=== PATIENT | male | born 1935 | race Two or more races ===

== ENCOUNTER 2017-03-23 14:11 | Inpatient (IN) | payer MEDICARE, BC ==
[2017-03-23 14:53] LABS: ABS Basophils 0 10^3/ul (0-0.2); ABS Eosinophils 0 10^3/ul (0-0.6); ABS Lymphocytes 0.6 10^3/ul (1.0-4.8); ABS Monocytes 0.8 10^3/ul (0-0.8); ABS Neutrophils 9.6 10^3/ul (1.5-7.7); ABS Nucleated RBC 0 10^3/ul; Eosinophil % 0.2 % (0-6); Hematocrit 39 % (42-52); Hemoglobin 13.2 g/dl (14.0-18.0); Lymphocyte % 5.3 % (25-47); Mean Corpuscular HGB Conc 34 g/dl (31-36); Mean Corpuscular Hemoglobin 28 pg (27-31); Mean Corpuscular Volume 81 fL (80-94); Mean Platelet Volume 10 um3 (7.4-10.4); Nucleated Red Blood Cells % 0; Platelet Count 153 10^3/ul (150-450); Red Blood Count 4.79 10^6/ul (4.0-5.4); Red Cell Distribution Width 14 % (10.5-15)
[2017-03-23 15:08] LABS: EGFR Non-African American 72.9 (>60)
--- NOTE | 2017-03-23 15:56 | RAD ---
HISTORY: The sella weakness, slurred speech COMPARISONS: None TECHNIQUE: Multiple contiguous axial CT scans were obtained of the head without intravenous contrast. FINDINGS: HEMORRHAGE/INFARCT: There is no hemorrhage or acute infarct. MASSES/SHIFT: There is no mass. There is 0.1 cm of subfalcine shift to the left. EXTRA-AXIAL SPACES: There is a low-attenuation fluid collection along the right frontal and parietal convexities consistent with chronic subdural hematoma. There is high attenuation material noted within this collection consistent with acute on chronic hemorrhage. SULCI AND VENTRICLES: There is diffuse and proportional enlargement of the sulci and ventricles. CEREBRUM: There is hypoattenuation of the periventricular and subcortical white matter. BRAINSTEM: There are no focal parenchymal abnormalities. CEREBELLUM: There are no focal parenchymal abnormalities. VESSELS: The vessels are grossly normal. PARANASAL SINUSES: The paranasal sinuses are clear. ORBITS: The orbits are unremarkable. BONES AND SOFT TISSUE: No bone or soft tissue abnormalities are noted. OTHER: None IMPRESSION: ACUTE ON CHRONIC RIGHT FRONTOPARIETAL SUBDURAL HEMATOMA. 0.1 CM OF SUBFALCINE SHIFT TO THE LEFT. CHRONIC SMALL VESSEL ISCHEMIC CHANGES. PRELIMINARY FINDINGS WERE DISCUSSED WITH DR. QUICK AT APPROXIMATELY 3:50 PM ON MARCH 23, 2017.
--- NOTE | 2017-03-23 16:12 | RAD ---
HISTORY: Fall, abrasion COMPARISONS: None VIEWS: 4, frontal views of both knees with lateral views of the left knee and of the right knee FINDINGS: Right: BONE DENSITY: There is diffuse osteopenia. BONES: There is no displaced fracture. There is superior patellar enthesophyte. JOINTS: There is no arthropathy. There is no suprapatellar joint effusion or lipohemarthrosis. ALIGNMENT: There is no dislocation. The alignment is anatomic. SOFT TISSUES: Unremarkable. Left: BONE DENSITY: There is diffuse osteopenia. BONES: There is no displaced fracture. JOINTS: There is no arthropathy. There is no suprapatellar joint effusion or lipohemarthrosis. ALIGNMENT: There is no dislocation. The alignment is anatomic. SOFT TISSUES: Unremarkable. OTHER FINDINGS: None. IMPRESSION: 1. OSTEOPENIA. 2. NO ACUTE OSSEOUS INJURY. THE DEGREE OF OSTEOPENIA MAY MAKE A NONDISPLACED FRACTURE RADIOGRAPHICALLY OCCULT. IF SYMPTOMS PERSIST, RECOMMEND REPEAT IMAGING.
[2017-03-23 16:24] LABS: Urine Appearance Clear; Urine Blood 3+ (Negative); Urine Color Yellow; Urine Ketones Trace (Negative); Urine Protein Negative (Negative); Urine Specific Gravity 1.013 (1.010-1.030); Urine Urobilinogen Negative (Negative)
--- NOTE | 2017-03-23 16:56 | RAD ---
HISTORY: Fall, subdural hematoma COMPARISONS: None TECHNIQUE: Multiple contiguous axial CT scans were obtained of the cervical spine without intravenous contrast, with coronal and sagittal multiplanar reformations. FINDINGS: BRAIN: The visualized brain is unremarkable CENTRAL CANAL: Evaluation of the central canal is limited on CT technique; however, there is no obvious canalicular mass or epidural hemorrhage. ALIGNMENT: There is straightening of the cervical lordosis. VERTEBRAL BODIES: There is diffuse osteopenia. Incidentally noted is a straight a defect of the posterior arch of C1. There is no displaced fracture. There is multilevel anterolateral marginal osteophyte formation. JOINTS: There is diffuse uncovertebral and facet hypertrophy. There is osteoarthritis of the atlantoaxial articulation. MUSCULATURE: Unremarkable INTERVERTEBRAL DISCS: There is diffuse loss of intervertebral disc height. AXIAL IMAGES: On axial images, there is moderate right neural foraminal narrowing at C5-C6. There is no osseous central canal stenosis. SOFT TISSUES: The visualized soft tissues of the neck are unremarkable. The prevertebral fat stripe is preserved. OTHER: None. IMPRESSION: 1. OSTEOPENIA. 2. DEGENERATIVE DISEASE AND OSTEOARTHRITIS. 3. NO ACUTE OSSEOUS INJURY TO THE CERVICAL SPINE
[2017-03-23] MEDS ORDERED: levETIRAcetam IV* 1,000 MG in NS 0.9% 100 ML* 100 ML IVPB ONE (17:53)
[2017-03-23] MEDS ORDERED: LORazepam TAB(*) 0.5 MG PO PRN (19:43)
[2017-03-23] MEDS ORDERED: Acetaminophen TAB* 325 MG PO PRN (19:43)
[2017-03-23] MEDS: amLODIPine TAB* 5 MG PO ONE ×2 (21:37→21:45)
[2017-03-23] MEDS: hydrALAZINE IV* 20 MG/ML VIAL IV SLOW PU PRN (21:45)
--- NOTE | 2017-03-23 23:14 | HP ---
HISTORY AND PHYSICAL: DATE OF ADMISSION: 03/23/17 ADMITTING PROVIDER: Robi Buckner MD PRIMARY CARE PROVIDER: Dr. Ferrari. CHIEF COMPLAINT: Fall, lower extremity weakness; inability to stand. HISTORY OF PRESENT ILLNESS: Gabriel Monroy is an 82-year-old male with a past medical history of hypertension; prostate cancer, status post radical prostatectomy, 1999, with local recurrence; anxiety; also dementia, who was in his usual state of health when he collapsed at 2 a.m. day of admission, caught in the arms of his , who assisted him slowly to the ground and he remained there for the next 3 hours. He is a Nepali-only speaker. History is provided by son, Daniel, with assistance of at bedside. Since that time, he has been reportedly unable to ambulate and was brought to the [facility] Emergency Room. They say he denied any fevers, chills, nausea, vomiting, diarrhea, constipation, headache, chest pain, shortness of breath. He does have a history of occasional falls and uses a cane at baseline. He lives with his . At [facility] ED, he had most notably a CT head noncontrast, which demonstrated acute on chronic subdural hematoma with 1-mm subfalcine shift to the left. Dr. Silva of Neurosurgery was consulted, who recommended admission to the ICU, medical clearance for surgery for likely craniometry (vs zenobia hole) with drain placement followed by several days in the ICU with recommendation for 1- hour neuro checks. Vitals signs initially stable to hypertensive; blood pressure 155 /76, then 181/77. The patient was loaded with IV Keppra [address] Silva. The patient's familyr reports no significant cardiac history including no history of myocardial infarction. MEDICATIONS: Include: 1. Ativan prescribed at 2 mg t.i.d. but thought that too much and he is actually getting it at 1 mg twice a day. 2. Atenolol 25 mg daily. 3. Ibuprofen 200 mg p.o. q.6 hours p.r.n. ALLERGIES: No known drug allergies. FAMILY HISTORY: Sister with CVA at age 75. Son cannot relate the patient's father's and mother's cause of . SOCIAL HISTORY: The patient is a former smoker of 40-pack years, quit 20 years ago. Had significant alcohol use in his younger days but not currently, no other drug use. He lives with his . Medical surrogate is son, Daniel Monroy, who desires the patient to be full code. REVIEW OF SYSTEMS: As per HPI, limited due to language differences. No dysuria or increased frequency. PHYSICAL EXAMINATION GENERAL APPEARANCE: No acute distress, slight bruise on left anterior scalp. VITAL SIGNS: Blood pressure currently 156/85, respiratory rate 11 to 20, satting 94% to 98% on room air, heart rate 64 to 75, temperature 98 degrees. HEENT: Normocephalic, slight bruise on anterior left forehead. Pupils equal, round, and reactive to light. Extraocular motions intact. No scleral icterus. NECK: Supple. No cervical or supraclavicular lymphadenopathy. RESPIRATORY: Clear to auscultation bilaterally with no wheezing, rales, or rhonchi. CARDIOVASCULAR: Regular rate and rhythm, no murmurs, rubs, or gallops. ABDOMEN: Soft, nontender, nondistended. EXTREMITIES: Warm, well perfused. NEUROLOGIC: Cranial nerves II through XII intact, though perhaps slight left facial droop. Leg strength at least 4/5 bilaterally, most prominent weakness maybe in his left biceps which is 4-, although unclear if it is just not of him understanding the commands through interpretation. Left finger abduction also reduced compared to right. SKIN: No rashes, slight abrasions on bilateral knees present. DIAGNOSTIC STUDIES/LAB DATA: White count 11.0, hemoglobin 13.2, hematocrit 39 , platelets 153, neutrophils 87.0. INR 1.00. Sodium 136, potassium 3.8, chloride 102, carbon dioxide 25, BUN 19, creatinine 0.98, glucose 134, lactic acid 1.6, albumin 4.3, calcium 10.1. Total bili 0.8, AST 25, ALT 16, alk phos 52. Troponin 0.01. Triglycerides 74, LDL 78, HDL 57.4. Urinalysis: +3 blood , trace ketones. Imaging: Additionally, had a knee x-ray which showed diffuse osteopenia. No acute osseous injury, though the degree of osteopenia make nondisplaced fracture radiologically occult. CT of the cervical spine showed degenerative disk disease, osteoarthritis, and osteopenia. CT brain without contrast demonstrated acute on chronic right frontoparietal subdural hematoma 0.1 cm of subfalcine shift to the left, chronic small vessel ischemic changes. EKG demonstrated prolonged NE interval 231. Some abnormal R-wave progression. No ST elevations or depressions or T-wave inversions. ASSESSMENT AND PLAN: Gabriel Monroy is an 82-year-old gentleman with locally recurrent prostate cancer, a former smoker to 40-pack years, hypertension, presents with acute on chronic subdural hematoma, who is medically cleared for surgery with Dr. Silva tomorrow. I added on a lipid panel, which showed no hyperlipidemia, A1c is also being added. Per Dr. Silva' request his goal blood pressures overnight are 140 to 160 systolically. We will get q.1 hour neuro checks. He can eat a heart-healthy diet until midnight after which he is n.p.o. We will repeat the CT head noncontrast in the a.m. to compare with any changes and get another CBC in the morning as well. We will continue his atenolol 25 mg daily and give him 0.5 mg Ativan q.8 hours p.r.n. given his frequent Ativan use. No further cardiologic testing such as echocardio-gram is indicated at this time. He is a full code being admitted to the inpatient status in the ICU per Dr. Silva' frequent neuro check. [id number]/[facility] #: [id number] MATTIE
[2017-03-23] MEDS ORDERED: niCARdipine 0.1MG/ML IVPREMIX* 20 MG/200 ML BAG IV SCH (23:45)
--- NOTE | 2017-03-23 23:47 | CONS ---
CONSULTATION REPORT: DATE OF CONSULT: 03/23/17 HISTORY OF PRESENT ILLNESS: The patient is a very pleasant 82-year-old male with a history of prostate cancer and dementia, who was brought to the emergency room after a reported possible syncopal episode. The patient's reports that the patient was trying to go to the bathroom yesterday and he experienced a fall. Unknown loss of consciousness. The patient was found to have weakness in the left upper and left lower extremity this morning and had difficulty ambulating and he was brought to the emergency room by ambulance. The patient and family denies any history of nausea or vomiting, any seizures, any problem with vision or speech. The patient has baseline dementia. They did report that the patient had left-sided weakness and inability to ambulate. No episodes of urinary or GI incontinence at his baseline, but the patient may have slight incontinence it the emergency room. The patient lives with his . History was obtained from the patient's chart, the patient and his family including his and his son. The patient was seen in the emergency room. PAST MEDICAL HISTORY: The patent has a history of prostate cancer, dementia, hypertension. PAST SURGICAL HISTORY: Prostate surgery, hernia repair. MEDICATIONS: The patient is reported to be on atenolol and lorazepam. ALLERGIES: No known drug allergies. FAMILY HISTORY: Noncontributory. SOCIAL HISTORY: Tobacco: Negative. Alcohol: Negative. Recreational drug use : Negative. PHYSICAL EXAMINATION: The patient is not in acute distress. He is resting comfortably. He is awake and alert. He is oriented x2. His pupils are equal and reactive. Cranial nerves II through XII are grossly intact. Motor 5/5 on the right side, 4/5 on the left side. The patient has pronator drift on the left. Sensory was grossly intact to light touch. Deep tendon reflexes +1 bilaterally. No clonus. No Babinski. Calderón's negative. Straight leg raise negative in the sitting position. The patient has no tenderness to right cervical, thoracic or lumbar spine. He has free range of motion of the cervical spine. STUDIES: The patient has a CT scan of the brain revealing a right chronic with acute component of subdural hematoma with mass effect upon the cerebral hemisphere with approximately 1.5 mm midline shift. ASSESSMENT: The patient is a very pleasant 82-year-old gentleman with history of prostate cancer and dementia, who was reported to have sustained a fall after a syncopal episode earlier this morning and presented with left hemiparesis and CT scan of the brain revealed a right mixed density subdural hematoma. PLAN: The patient at this point has signs of left hemiparesis consistent with compressed phenomena from his right subdural hematoma. We discussed in extent the patient's condition as well as imaging findings with the patient's son and . I think at this point, evacuation of a subdural hematoma may be beneficial for the patient in the form of craniotomy or zenobia holes due to the acute compressive component of his subdural. We discussed expectation and limitations, possible complications of the procedure. The complications include but not limited to bleeding, infection, risk of injury to adjacent structures structures, come, paralysis, , need for additional procedure, anesthesia risks, stroke, blindness, cancer, need for additional procedures, spinal fluid leak. The patient's family understood and would like to proceed with surgical intervention with understanding that the patient may require further subsequent interventions and that if his condition may not improve, in fact may get worse after the surgery and that he may require a prolonged hospitalization with prolonged ICU stay, need for tracheostomy, gastrostomy, difficulty to wean from the ventilator. The patient is currently evaluated by Internal Medicine. Appreciate IM management and we would kindly request to obtain Medicine clearance. We recommend to give him 7 days of seizures prophylaxis, maintain his systolic blood pressure within normal limits and monitor his vital signs and neuro checks q.1 hour. We will obtain a CT scan of the brain in the morning , keep him n.p.o. after midnight and we will plan for a craniotomy/ zenobia holes and evacuation of the subdural hematoma. Thank you for allowing us to participate in the care of this patient. Please do not hesitate to contact our office in case you have any further questions or concerns regarding the care of this patient. [id number]/[facility] #: [id number] MATTIE
[2017-03-24] MEDS: hydrALAZINE IV* 20 MG/ML VIAL IV SLOW PU PRN (00:06)
[2017-03-24 05:26] LABS: ABS Basophils 0.1 10^3/ul (0-0.2); ABS Eosinophils 0.1 10^3/ul (0-0.6); ABS Monocytes 0.8 10^3/ul (0-0.8); ABS Neutrophils 8.5 10^3/ul (1.5-7.7); ABS Nucleated RBC 0 10^3/ul; Eosinophil % 0.5 % (0-6); Hematocrit 41 % (42-52); Hemoglobin 13.9 g/dl (14.0-18.0); Lymphocyte % 9.4 % (25-47); Mean Corpuscular HGB Conc 34 g/dl (31-36); Mean Corpuscular Hemoglobin 28 pg (27-31); Mean Corpuscular Volume 81 fL (80-94); Mean Platelet Volume 10 um3 (7.4-10.4); Nucleated Red Blood Cells % 0; Platelet Count 136 10^3/ul (150-450); Red Blood Count 5.05 10^6/ul (4.0-5.4); Red Cell Distribution Width 14 % (10.5-15); White Blood Count 10.4 10^3/ul (3.5-10.8)
[2017-03-24] MEDS ORDERED: Famotidine IV* 10 MG/ML 2 ML (20 mg) IV ONE (06:00)
--- NOTE | 2017-03-24 07:49 | RAD ---
INDICATION: Subdural hematoma COMPARISON: March 23, 2017 TECHNIQUE: Noncontrast axial source images were acquired from the skull base to the vertex. FINDINGS: Ventricles/sulci: There is advanced cortical atrophy with compensatory dilatation of the CSF spaces. Brain parenchyma: There is advanced periventricular and subcortical white matter change compatible with chronic ischemia. Intracranial hemorrhage:None. Extra-axial spaces: There is a right frontoparietal convexity subdural hematoma measuring approximately 12 mm in thickness, unchanged. There is evidence of both acute and chronic hemorrhage. The appearance is unchanged. There is localized mass effect with sulcal effacement. Calvarium: There is no calvarial fracture or other calvarial abnormality. Scalp: There is no evidence of scalp or extracalvarial soft tissue abnormality. Paranasal sinuses/mastoid: The paranasal sinuses and mastoid air cells are clear. Other: None. IMPRESSION: NO CHANGE IN THE RIGHT-SIDED SUBDURAL HEMATOMA WHICH CONTAINS BOTH ACUTE AND CHRONIC HEMORRHAGE. THERE IS LOCALIZED MASS EFFECT. ADVANCED CORTICAL ATROPHY WITH CHRONIC MICROVASCULAR ISCHEMIC CHANGE.
[2017-03-24] MEDS: levETIRAcetam TAB* 500 MG PO SCH ×2 (08:51→10:46)
[2017-03-24] MEDS: Atenolol TAB* 25 MG PO SCH (08:51)
[2017-03-24] MEDS: LORazepam INJ* 2 MG/ML 1 ML VIAL IV PUSH PRN ×2 (10:32→17:15)
[2017-03-24] MEDS: levETIRAcetam IV* 1,000 MG in NS 0.9% 100 ML* 100 ML IVPB SCH ×2 (10:32→22:51)
[2017-03-24] MEDS ORDERED: Lidocaine 1% MPF wEPI 200,000* 30 ML SDV ONE (13:22)
[2017-03-24] MEDS ORDERED: Mannitol 25% (12.5 GM) 50 ML* 12.5 GM/50 ML VIAL ONE (13:23)
[2017-03-24] MEDS ORDERED: Thrombin 5,000 UNITS* 1 APPLIC KIT - topical use - TOPICAL ONE (13:23)
[2017-03-24] MEDS ORDERED: Bacitracin IV* 50,000 UNITS INJ ONE (13:23)
[2017-03-24] MEDS ORDERED: ceFAZolin 1 GM in Dextrose (*) 2 GM/100 ML BAG IVPB ONE (13:50)
[2017-03-24] MEDS ORDERED: fentaNYL* 50 MCG/ML 2 ML VIAL (100 MCG VIAL) ONE (14:11)
[2017-03-24] MEDS ORDERED: Lidocaine 2% PF * 5 ML VIAL ONE (14:11)
[2017-03-24] MEDS ORDERED: EPHEDrine (Pressors)* 50 MG/ML VIAL ONE (15:16)
[2017-03-24] MEDS ORDERED: Propofol* 10 MG/ML 20 ML BTL IV PUSH ONE (15:31)
[2017-03-24] MEDS ORDERED: Naloxone* 0.4 MG/ML 1 ML VIAL IV PRN (15:53)
[2017-03-24] MEDS ORDERED: oxyCODONE/Acetamin 5/325 MG* TAB PO PRN (15:53)
--- NOTE | 2017-03-24 16:45 | PN ---
Subjective Date of Service: 03/24/17 Interval History: placed on nicardipine gtt overnight as was not considered safe for po pills and hypertensive above goals to surgery in afternoon planned. s/p zenobia hole with drain. agitated in AM. Objective Active Medications: Acetaminophen (Tylenol Tab*) 650 mg PO Q6H PRN PRN Reason: FEVER/PAIN Atenolol (Tenormin Tab*) 25 mg PO DAILY [facility] Last Admin: 03/24/17 08:51 Dose: 25 mg Hydralazine HCl (Apresoline Iv*) 10 mg IV SLOW PU Q2H PRN PRN Reason: SYSTOLIC BP GREATER THAN 180 Last Admin: 03/24/17 00:06 Dose: 10 mg Lactated Ringer's (Lactated Ringers 1000 Ml Bag*) 1,000 mls @ 100 mls/hr IV PER RATE [facility] Last Admin: 03/24/17 10:15 Dose: 100 mls/hr Levetiracetam 1,000 mg/ Sodium (Chloride) 110 mls @ 440 mls/hr IVPB Q12H [facility] Last Admin: 03/24/17 10:32 Dose: 440 mls/hr Lorazepam (Ativan Tab(*)) 0.5 mg PO Q8H PRN PRN Reason: ANXIETY Lorazepam (Ativan Inj*) 0.5 mg IV PUSH Q6H PRN PRN Reason: ANXIETY Last Admin: 03/24/17 10:32 Dose: 0.5 mg Naloxone HCl (Narcan*) 0.08 mg IV Q2M PRN PRN Reason: severe induced resp depression Stop: 03/25/17 15:52 Oxycodone/Acetaminophen (Percocet 5/325 Tab*) 1 tab PO ONCE PRN PRN Reason: PAIN - MODERATE Stop: 03/24/17 18:00 Vital Signs - 8 hr 03/24/17 03/24/17 03/24/17 09:00 09:30 09:46 Pulse Rate 86 84 82 Respiratory 18 18 16 Rate Blood Pressure 157/93 158/96 122/116 (mmHg) O2 Sat by Pulse 96 96 97 Oximetry 03/24/17 03/24/17 03/24/17 10:00 10:07 10:16 Pulse Rate 64 64 Respiratory 22 17 27 Rate Blood Pressure 158/78 141/84 (mmHg) O2 Sat by Pulse 100 98 Oximetry 03/24/17 03/24/17 03/24/17 10:30 10:32 10:45 Pulse Rate 57 57 Respiratory 21 18 23 Rate Blood Pressure 148/80 156/79 (mmHg) O2 Sat by Pulse 99 99 Oximetry 03/24/17 03/24/17 03/24/17 11:00 11:01 11:15 Pulse Rate 60 60 60 Respiratory 16 25 24 Rate Blood Pressure 146/79 154/81 (mmHg) O2 Sat by Pulse 99 99 99 Oximetry 03/24/17 03/24/17 03/24/17 11:31 11:45 12:00 Pulse Rate 58 52 62 Respiratory 22 18 19 Rate Blood Pressure 145/71 163/90 (mmHg) O2 Sat by Pulse 97 99 98 Oximetry 03/24/17 03/24/17 03/24/17 12:02 12:16 12:30 Pulse Rate 61 59 55 Respiratory 22 21 20 Rate Blood Pressure 165/87 158/78 170/74 (mmHg) O2 Sat by Pulse 97 96 95 Oximetry 03/24/17 03/24/17 03/24/17 12:45 13:00 13:01 Pulse Rate 57 61 56 Respiratory 17 19 19 Rate Blood Pressure 131/78 154/73 (mmHg) O2 Sat by Pulse 96 95 95 Oximetry 03/24/17 03/24/17 03/24/17 13:21 13:30 13:46 Pulse Rate 51 57 57 Respiratory 20 19 19 Rate Blood Pressure 162/96 158/79 163/75 (mmHg) O2 Sat by Pulse 98 97 97 Oximetry Oxygen Devices in Use Now: None Appearance: more agitated then previous. Ears/Nose/Mouth/Throat: NL Teeth, Lips, Gums Neck: NL Appearance and Movements; NL JVP Respiratory: Symmetrical Chest Expansion and Respiratory Effort, Clear to Auscultation Cardiovascular: NL Sounds; No Murmurs; No JVD, RRR Abdominal: NL Sounds; No Tenderness; No Distention Extremities: No Edema Skin: No Rash or Ulcers Neurological: - - left day care provider and finger abduction 4+/5, left pronator drift. Nutrition: Taking PO's Result Diagrams: 03/24/17 05:00 03/23/17 14:32 Additional Lab and Data: Laboratory Results - last 24 hr 03/24/17 05:00 WBC 10.4 RBC 5.05 Hgb 13.9 L Hct 41 L MCV 81 MCH 28 MCHC 34 RDW 14 Plt Count 136 L MPV 10 Neut % (Auto) 81.8 Lymph % (Auto) 9.4 L Hubbard % (Auto) 7.7 Eos % (Auto) 0.5 Baso % (Auto) 0.6 Absolute Neuts (auto) 8.5 H Absolute Lymphs (auto) 1.0 Absolute Monos (auto) 0.8 Absolute Eos (auto) 0.1 Absolute Basos (auto) 0.1 Absolute Nucleated RBC 0 Nucleated RBC % 0 Microbiology and Other Data: Microbiology 03/24/17 04:21 Nasal Screen MRSA (PCR)([facility]ANIA) - Final Nasal Mrsa Not Detected Assess/Plan/Problems-Billing Assessment: 82 yo PMH dementia, htn, agitation p/w fall and 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 s/p zenobia hole 03/24. drain in ICU. - Patient Problems (1) SDH (subdural hematoma) Current Visit: Yes Status: Acute Code(s): I62.00 - NONTRAUMATIC SUBDURAL HEMORRHAGE, UNSPECIFIED SNOMED Code(s): 87439258 Comment: s/p zenobia hole with NS head of bed flat to 10 degrees repeat CTH in AM drain to gravity monitoring in ICU q1hr neuro checks. (2) HTN (hypertension) Current Visit: Yes Status: Acute Code(s): I10 - ESSENTIAL (PRIMARY) HYPERTENSION SNOMED Code(s): 56419684 Comment: continue atenolol and prn hydralazine, goal 140-160 per NS. if need be can restart cardene gtt. (3) Agitation Current Visit: Yes Status: Acute Code(s): R45.1 - RESTLESSNESS AND AGITATION SNOMED Code(s): 946152772 Comment: ativan prn soft restraints to protect drain. Status and Disposition: medicine inpatient, in ICU Attending: Robi Buckner
[2017-03-24] MEDS ORDERED: LORazepam INJ* 2 MG/ML 1 ML VIAL IV PUSH ONE (17:37)
[2017-03-25] MEDS: hydrALAZINE IV* 20 MG/ML VIAL IV SLOW PU PRN (03:05)
[2017-03-25 06:29] LABS: ABS Basophils 0 10^3/ul (0-0.2); ABS Eosinophils 0.1 10^3/ul (0-0.6); ABS Lymphocytes 1.7 10^3/ul (1.0-4.8); ABS Monocytes 0.9 10^3/ul (0-0.8); ABS Neutrophils 7.8 10^3/ul (1.5-7.7); ABS Nucleated RBC 0 10^3/ul; Hematocrit 39 % (42-52); Hemoglobin 13.1 g/dl (14.0-18.0); Mean Corpuscular HGB Conc 33 g/dl (31-36); Mean Corpuscular Hemoglobin 28 pg (27-31); Mean Corpuscular Volume 83 fL (80-94); Mean Platelet Volume 10 um3 (7.4-10.4); Nucleated Red Blood Cells % 0.1; Platelet Count 127 10^3/ul (150-450); Red Blood Count 4.76 10^6/ul (4.0-5.4); Red Cell Distribution Width 14 % (10.5-15); White Blood Count 10.6 10^3/ul (3.5-10.8)
--- NOTE | 2017-03-25 08:07 | PN ---
Progress Note - Progress Note Date of Service: 03/25/17 SOAP: Subjective: []POD # 1 Awake,alert No c/o headache Minimal drain output Objective: []Neuro intact Post op CT looks good Assessment: []Satis post op course Plan: []Elevate HOB Begin diet
--- NOTE | 2017-03-25 08:16 | RAD ---
INDICATION: Subdural hematoma, postoperative study. COMPARISON: Comparison is made with a prior CT of the brain from March 24, 2017. TECHNIQUE: Contiguous axial sections of the brain were obtained from the skull base to the vertex without contrast. FINDINGS: The patient is status post evacuation of a subdural hematoma present adjacent to the right frontal and parietal lobes. There is a zenobia hole present in the right frontal bone and a subdural drain present. There is interval decrease in both the acute and chronic components of the subdural hematoma. There is a small amount of residual hemorrhage present. There is marked improvement from the prior study. The ventricles, cisterns and sulci are diffusely prominent consistent with diffuse atrophy. There are focal areas of decreased attenuation present in the subcortical and periventricular white matter most consistent with chronic small vessel ischemic changes. The visualized portion of the paranasal sinuses and mastoid air cells appear clear. IMPRESSION: 1. EVACUATION OF A SUBDURAL HEMATOMA PRESENT ON THE RIGHT SIDE. THERE IS A SUBDURAL DRAIN IN PLACE. THERE IS MARKED IMPROVEMENT FROM THE PRIOR STUDY. 2. ATROPHY AND CHRONIC SMALL VESSEL ISCHEMIC CHANGES.
[2017-03-25] MEDS: Atenolol TAB* 25 MG PO SCH (08:50)
[2017-03-25] MEDS: levETIRAcetam IV* 1,000 MG in NS 0.9% 100 ML* 100 ML IVPB SCH ×2 (11:05→23:07)
--- NOTE | 2017-03-25 11:38 | PN ---
Subjective Date of Service: 03/25/17 Interval History: no overnight events. he denies pain. he speaks little tamazight but understands he is in the hospital and says he feels "fine" Family History: Unchanged from Admission Social History: Unchanged from Admission Past Medical History: Unchanged from Admission Objective Active Medications: Acetaminophen (Tylenol Tab*) 650 mg PO Q6H PRN PRN Reason: FEVER/PAIN Atenolol (Tenormin Tab*) 25 mg PO DAILY [facility] Last Admin: 03/25/17 08:50 Dose: 25 mg Hydralazine HCl (Apresoline Iv*) 10 mg IV SLOW PU Q2H PRN PRN Reason: SYSTOLIC BP GREATER THAN 180 Last Admin: 03/25/17 03:05 Dose: 10 mg Lactated Ringer's (Lactated Ringers 1000 Ml Bag*) 1,000 mls @ 100 mls/hr IV PER RATE [facility] Last Admin: 03/24/17 23:39 Dose: 100 mls/hr Levetiracetam 1,000 mg/ Sodium (Chloride) 110 mls @ 440 mls/hr IVPB Q12H [facility] Last Admin: 03/25/17 11:05 Dose: 440 mls/hr Lorazepam (Ativan Tab(*)) 0.5 mg PO Q8H PRN PRN Reason: ANXIETY Lorazepam (Ativan Inj*) 0.5 mg IV PUSH Q6H PRN PRN Reason: ANXIETY Last Admin: 03/24/17 17:15 Dose: 0.5 mg Naloxone HCl (Narcan*) 0.08 mg IV Q2M PRN PRN Reason: severe induced resp depression Stop: 03/25/17 15:52 Vital Signs - 8 hr 03/25/17 03/25/17 03/25/17 04:00 04:30 05:00 Temperature 98.4 F 98.4 F Pulse Rate 76 71 Respiratory 15 20 17 Rate Blood Pressure 150/76 150/82 (mmHg) O2 Sat by Pulse 95 96 Oximetry 03/25/17 03/25/17 03/25/17 05:06 06:00 06:54 Temperature Pulse Rate 71 70 62 Respiratory 22 17 17 Rate Blood Pressure 142/69 (mmHg) O2 Sat by Pulse 95 96 96 Oximetry 03/25/17 03/25/17 03/25/17 07:00 07:30 08:00 Temperature 98.1 F Pulse Rate 77 68 67 Respiratory 22 20 14 Rate Blood Pressure 148/88 168/89 160/94 (mmHg) O2 Sat by Pulse 97 95 96 Oximetry 03/25/17 03/25/17 03/25/17 08:13 08:30 09:00 Temperature 98.1 F 98.1 F 98.1 F Pulse Rate 61 65 65 Respiratory 15 19 19 Rate Blood Pressure 160/94 161/78 (mmHg) O2 Sat by Pulse 95 97 95 Oximetry 03/25/17 09:02 Temperature 98.2 F Pulse Rate 73 Respiratory 21 Rate Blood Pressure 172/85 (mmHg) O2 Sat by Pulse 95 Oximetry Oxygen Devices in Use Now: None Appearance: comfortable, lying flat, awakens to voice Eyes: No Scleral Icterus Ears/Nose/Mouth/Throat: NL Teeth, Lips, Gums, - - abrasion on left forehead, drain on right. 5ccs since this am. Respiratory: Symmetrical Chest Expansion and Respiratory Effort Cardiovascular: NL Sounds; No Murmurs; No JVD Abdominal: NL Sounds; No Tenderness; No Distention Lymphatic: No Cervical Adenopathy Extremities: No Edema Skin: No Rash or Ulcers Result Diagrams: 03/25/17 05:58 03/23/17 14:32 Additional Lab and Data: Laboratory Results - last 24 hr 03/24/17 05:00 WBC 10.4 RBC 5.05 Hgb 13.9 L Hct 41 L MCV 81 MCH 28 MCHC 34 RDW 14 Plt Count 136 L MPV 10 Neut % (Auto) 81.8 Lymph % (Auto) 9.4 L [place] % (Auto) 7.7 Eos % (Auto) 0.5 Baso % (Auto) 0.6 Absolute Neuts (auto) 8.5 H Absolute Lymphs (auto) 1.0 Absolute Monos (auto) 0.8 Absolute Eos (auto) 0.1 Absolute Basos (auto) 0.1 Absolute Nucleated RBC 0 Nucleated RBC % 0 Microbiology and Other Data: Microbiology 03/24/17 04:21 Nasal Screen MRSA (PCR)(TANIA) - Final Nasal Mrsa Not Detected Assess/Plan/Problems-Billing Assessment: 82 yo PMH dementia, htn, agitation p/w fall and 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 s/p zenobia hole 03/24. drain in ICU. - Patient Problems (1) Agitation Current Visit: Yes Status: Acute Code(s): R45.1 - RESTLESSNESS AND AGITATION SNOMED Code(s): 425407061 Comment: I am changing his ativan to standing, as that is what he was on at home. soft restraints as needed. (2) HTN (hypertension) Current Visit: Yes Status: Acute Code(s): I10 - ESSENTIAL (PRIMARY) HYPERTENSION SNOMED Code(s): 56439973 Comment: continue atenolol and prn hydralazine, goal 140-160 per NS. as above, I am changing his ativan back to standing, as he takes this at home and has only gotten 0.5mg here so far--may be contributing to his poorly controlled htn. (3) SDH (subdural hematoma) Current Visit: Yes Status: Acute Code(s): I62.00 - NONTRAUMATIC SUBDURAL HEMORRHAGE, UNSPECIFIED SNOMED Code(s): 57222099 Comment: s/p zenobia hole with NS head of bed flat to 10 degrees drain to gravity monitoring in ICU q1hr neuro checks. Status and Disposition: medicine inpatient, in ICU
[2017-03-25] MEDS: LORazepam TAB(*) 1 MG PO SCH (20:44)
[2017-03-25] MEDS: LORazepam INJ* 2 MG/ML 1 ML VIAL IV PUSH PRN (22:02)
--- NOTE | 2017-03-26 02:15 | OP ---
DATE OF OPERATION: 03/24/17 - ROOM #337 DATE OF : 31 SURGEON: Nica Silva MD DAIRY EQUIPMENT INSTALLER: LEATHA Christopher. ANESTHESIA: General. PRE-OP DIAGNOSIS: Right Subdural Hematoma POST-OP DIAGNOSIS: Right Subdural Hematoma OPERATIVE PROCEDURE: The patient under a right frontal zenobia hole for evacuation of subdural hematoma. ESTIMATED BLOOD LOSS: 30 cc. COMPLICATIONS: None. SUMMARY: The patient is a very pleasant 82-year-old gentleman, who has a history of prostate cancer, hypertension, and dementia who was reportedly had sustained a fall the night prior to his admission. 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 After explaining all expectations, limitations, possible complications of procedure to the patient's family, the patient was offered the option of right frontal zenobia hole/craniotomy for evacuation of the subdural hematoma. Complications include but not limited to bleeding, infection, risk of injury to adjacent structures, coma, paralysis, , need for additional procedures, anesthesia risk, stroke, blindness, cancer, recurrence of the subdural hematoma. The patient's family understood and was agreeable to proceed with surgical intervention. Informed consent was obtained. The patient was cleared medically and the patient's family understood that his condition may not improve and in fact may get worse after surgery and that he may need to have additional procedures in the future as well as that plan may be modified according to intraoperative findings and conditions. DESCRIPTION OF PROCEDURE: The patient was brought to the operating room and was placed under general anesthesia by the anesthesia team. His skin was prepped and draped in a sterile fashion. After appropriate surgical pause and the patient identification, a small right frontal incision was performed over the intended site of the zenobia hole. The skin was infiltrated with local anesthetic and after incising the skin with #10 surgical blade, periosteal elevator was used to dissect free the periosteum. Self-retaining retractor was introduced into the field. High-speed drill was used to fashion a eznobia hole which was gently done in the direction of the intended placement of the subdural drain. After tunneling the catheter trocar through a separate stab incision, an EVD catheter was gently advanced into the subdural space after coagulating the dura with the use of a bipolar cautery and incising it with number 11 surgical blade. Machine oil like fluid was encountered under significant pressure. After copious irrigation, the catheter was tunneled through the separate stab wound incision and secured in place with 2-0 silk suture. The wound was copiously irrigated then that was closed by layers with interrupted 2-0 Vicryl for subcutaneous tissue and the galea and joycelyn for the skin. Prior to the closure meticulous hemostasis was confirmed as well as copious irrigation was performed. At the end of the procedure, the counts were reported to be correct. The patient remained hemodynamically stable throughout the case. At the end of the procedure, he was extubated and was transferred to Recovery in excellent condition. [id number]/[facility] #: [id number] MATTIE
[2017-03-26] MEDS: LORazepam INJ* 2 MG/ML 1 ML VIAL IV PUSH PRN (02:29)
[2017-03-26 06:34] LABS: ABS Basophils 0.1 10^3/ul (0-0.2); ABS Eosinophils 0.2 10^3/ul (0-0.6); ABS Lymphocytes 1.7 10^3/ul (1.0-4.8); ABS Monocytes 0.8 10^3/ul (0-0.8); ABS Neutrophils 5.6 10^3/ul (1.5-7.7); ABS Nucleated RBC 0 10^3/ul; Eosinophil % 2.9 % (0-6); Hematocrit 36 % (42-52); Hemoglobin 12.5 g/dl (14.0-18.0); Lymphocyte % 20.2 % (25-47); Mean Corpuscular HGB Conc 35 g/dl (31-36); Mean Corpuscular Hemoglobin 28 pg (27-31); Mean Corpuscular Volume 81 fL (80-94); Mean Platelet Volume 10 um3 (7.4-10.4); Nucleated Red Blood Cells % 0; Platelet Count 113 10^3/ul (150-450); Red Cell Distribution Width 14 % (10.5-15); White Blood Count 8.3 10^3/ul (3.5-10.8)
[2017-03-26] MEDS: Atenolol TAB* 25 MG PO SCH (09:50)
[2017-03-26] MEDS: levETIRAcetam IV* 1,000 MG in NS 0.9% 100 ML* 100 ML IVPB SCH ×2 (09:50→22:31)
[2017-03-26] MEDS: LORazepam TAB(*) 1 MG PO SCH ×2 (09:50→20:33)
--- NOTE | 2017-03-26 10:11 | PN ---
Progress Note - Progress Note Date of Service: 03/26/17 SOAP: Subjective: [] POD # 2 Doing well Alert ,being fed Objective: []Neuro appears intact Assessment: []Satis post op course Plan: []Increase diet,activity
--- NOTE | 2017-03-26 14:08 | PN ---
Subjective Date of Service: 03/26/17 Interval History: Language Line ID #[id number] used Mr. Monroy Family History: Unchanged from Admission Social History: Unchanged from Admission Past Medical History: Unchanged from Admission Objective Active Medications: Acetaminophen (Tylenol Tab*) 650 mg PO Q6H PRN PRN Reason: FEVER/PAIN Atenolol (Tenormin Tab*) 25 mg PO DAILY [facility] Last Admin: 03/26/17 09:50 Dose: 25 mg Hydralazine HCl (Apresoline Iv*) 10 mg IV SLOW PU Q2H PRN PRN Reason: SYSTOLIC BP GREATER THAN 180 Last Admin: 03/25/17 03:05 Dose: 10 mg Lactated Ringer's (Lactated Ringers 1000 Ml Bag*) 1,000 mls @ 100 mls/hr IV PER RATE [facility] Last Admin: 03/26/17 07:55 Dose: 100 mls/hr Levetiracetam 1,000 mg/ Sodium (Chloride) 110 mls @ 440 mls/hr IVPB Q12H [facility] Last Admin: 03/26/17 09:50 Dose: 440 mls/hr Lorazepam (Ativan Tab(*)) 2 mg PO BID [facility] Last Admin: 03/26/17 09:50 Dose: 2 mg Lorazepam (Ativan Inj*) 0.5 mg IV PUSH Q4H PRN PRN Reason: ANXIETY Last Admin: 03/26/17 02:29 Dose: 0.5 mg Vital Signs - 8 hr 03/26/17 03/26/17 03/26/17 07:00 07:01 07:57 Temperature 99.1 F 99.1 F Pulse Rate 67 65 Respiratory 18 21 21 Rate Blood Pressure 162/66 (mmHg) O2 Sat by Pulse 95 96 96 Oximetry 03/26/17 03/26/17 03/26/17 08:00 08:01 09:00 Temperature 99.1 F 99.1 F 99.1 F Pulse Rate 67 72 64 Respiratory 27 26 24 Rate Blood Pressure 140/67 (mmHg) O2 Sat by Pulse 97 96 95 Oximetry 03/26/17 03/26/17 03/26/17 09:01 09:50 10:00 Temperature 99.1 F 99.0 F Pulse Rate 67 82 Respiratory 25 24 29 Rate Blood Pressure 170/87 (mmHg) O2 Sat by Pulse 97 96 Oximetry 03/26/17 03/26/17 03/26/17 10:01 10:02 10:31 Temperature 99.0 F 99.0 F 99.0 F Pulse Rate 83 81 72 Respiratory 30 27 24 Rate Blood Pressure 186/91 194/88 161/85 (mmHg) O2 Sat by Pulse 95 95 95 Oximetry 03/26/17 03/26/17 03/26/17 11:00 12:00 12:01 Temperature 99.0 F 99.1 F 99.1 F Pulse Rate 62 54 55 Respiratory 26 21 18 Rate Blood Pressure 170/91 165/73 (mmHg) O2 Sat by Pulse 96 97 96 Oximetry 03/26/17 13:00 Temperature 99.1 F Pulse Rate 63 Respiratory 25 Rate Blood Pressure 172/73 (mmHg) O2 Sat by Pulse 98 Oximetry Oxygen Devices in Use Now: None Appearance: keeps his eyes closed for my interview but says he is opening his eyes Ears/Nose/Mouth/Throat: - - edentulous. drain removed and [address] over right forehead. abrasion and scab on left side. Respiratory: Symmetrical Chest Expansion and Respiratory Effort Cardiovascular: NL Sounds; No Murmurs; No JVD, RRR Abdominal: NL Sounds; No Tenderness; No Distention Lymphatic: No Cervical Adenopathy Skin: No Rash or Ulcers Neurological: - - oriented to person only, thinks he is in [place] Result Diagrams: 03/26/17 06:18 03/23/17 14:32 Additional Lab and Data: Laboratory Results - last 24 hr 03/24/17 05:00 WBC 10.4 RBC 5.05 Hgb 13.9 L Hct 41 L MCV 81 MCH 28 MCHC 34 RDW 14 Plt Count 136 L MPV 10 Neut % (Auto) 81.8 Lymph % (Auto) 9.4 L [place] % (Auto) 7.7 Eos % (Auto) 0.5 Baso % (Auto) 0.6 Absolute Neuts (auto) 8.5 H Absolute Lymphs (auto) 1.0 Absolute Monos (auto) 0.8 Absolute Eos (auto) 0.1 Absolute Basos (auto) 0.1 Absolute Nucleated RBC 0 Nucleated RBC % 0 Microbiology and Other Data: Microbiology 03/24/17 04:21 Nasal Screen MRSA (PCR)(TANIA) - Final Nasal Mrsa Not Detected Assess/Plan/Problems-Billing Assessment: 82 yo PMH dementia, htn, agitation p/w fall and 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 s/p zenobia hole 03/24. - Patient Problems (1) SDH (subdural hematoma) Current Visit: Yes Status: Acute Code(s): I62.00 - NONTRAUMATIC SUBDURAL HEMORRHAGE, UNSPECIFIED SNOMED Code(s): 72101389 Comment: s/p zenobia hole with NS drain removed yesterday (he pulled it outhimself) q4 neuro checks (2) Agitation Current Visit: Yes Status: Acute Code(s): R45.1 - RESTLESSNESS AND AGITATION SNOMED Code(s): 810542944 Comment: consistent with ICU delirium in setting of dementia standing ativan (home dose), change prn ativan to seroquel (3) HTN (hypertension) Current Visit: Yes Status: Acute Code(s): I10 - ESSENTIAL (PRIMARY) HYPERTENSION SNOMED Code(s): 81374431 Comment: continue atenolol and prn hydralazine, goal 140-160 per NS. I suspect some of the elevated readings are due to agitation Status and Disposition: transfer to floor today
[2017-03-26] MEDS: NIFEdipine CAP* 10 MG PO SCH (20:33)
[2017-03-26] MEDS ORDERED: NS 0.9% 100 ML* 100 ML ONE (22:01)
[2017-03-27 06:00] LABS: ABS Basophils 0 10^3/ul (0-0.2); ABS Eosinophils 0.2 10^3/ul (0-0.6); ABS Lymphocytes 1.7 10^3/ul (1.0-4.8); ABS Monocytes 0.7 10^3/ul (0-0.8); ABS Neutrophils 4.6 10^3/ul (1.5-7.7); ABS Nucleated RBC 0 10^3/ul; Eosinophil % 3.5 % (0-6); Hematocrit 35 % (42-52); Hemoglobin 11.9 g/dl (14.0-18.0); Lymphocyte % 22.9 % (25-47); Mean Corpuscular HGB Conc 34 g/dl (31-36); Mean Corpuscular Hemoglobin 28 pg (27-31); Mean Corpuscular Volume 81 fL (80-94); Mean Platelet Volume 9 um3 (7.4-10.4); Nucleated Red Blood Cells % 0.1; Platelet Count 119 10^3/ul (150-450); Red Cell Distribution Width 14 % (10.5-15); White Blood Count 7.2 10^3/ul (3.5-10.8)
[2017-03-27] MEDS: Atenolol TAB* 25 MG PO SCH (09:09)
[2017-03-27] MEDS: NIFEdipine CAP* 10 MG PO SCH ×3 (09:09→20:00)
[2017-03-27] MEDS: LORazepam TAB(*) 1 MG PO SCH ×2 (09:09→20:00)
[2017-03-27] MEDS: levETIRAcetam TAB* 500 MG PO SCH ×2 (10:25→20:00)
--- NOTE | 2017-03-27 16:02 | PN ---
Subjective Date of Service: 03/27/17 Interval History: his son and are at the bedside this morning. I offered to use the language line, but his son prefers to interpret. Mr. Monroy has no pain and feels well today. He is happy his family is here. Family History: Unchanged from Admission Social History: Unchanged from Admission Past Medical History: Unchanged from Admission Objective Active Medications: Acetaminophen (Tylenol Tab*) 650 mg PO Q6H PRN PRN Reason: FEVER/PAIN Atenolol (Tenormin Tab*) 25 mg PO DAILY [facility] Last Admin: 03/27/17 09:09 Dose: 25 mg Hydralazine HCl (Apresoline Iv*) 10 mg IV SLOW PU Q2H PRN PRN Reason: SYSTOLIC BP GREATER THAN 180 Last Admin: 03/25/17 03:05 Dose: 10 mg Lactated Ringer's (Lactated Ringers 1000 Ml Bag*) 1,000 mls @ 100 mls/hr IV PER RATE [facility] Last Admin: 03/26/17 16:02 Dose: 100 mls/hr Levetiracetam (Keppra Tab*) 1,000 mg PO BID [facility] Last Admin: 03/27/17 10:25 Dose: 1,000 mg Lorazepam (Ativan Tab(*)) 2 mg PO BID [facility] Last Admin: 03/27/17 09:09 Dose: 2 mg Lorazepam (Ativan Inj*) 0.5 mg IV PUSH Q4H PRN PRN Reason: ANXIETY Last Admin: 03/26/17 02:29 Dose: 0.5 mg Nifedipine (Procardia Cap*) 10 mg PO TID [facility] Last Admin: 03/27/17 13:59 Dose: 10 mg Quetiapine Fumarate (Seroquel Tab*) 25 mg PO DAILY@1999 [facility] Vital Signs - 8 hr 03/27/17 03/27/17 03/27/17 08:00 09:09 11:06 Temperature Pulse Rate Respiratory 18 18 18 Rate Blood Pressure (mmHg) O2 Sat by Pulse Oximetry 03/27/17 03/27/17 11:51 15:22 Temperature 98.0 F 98.0 F Pulse Rate 73 82 Respiratory 18 20 Rate Blood Pressure 141/75 157/75 (mmHg) O2 Sat by Pulse 97 95 Oximetry Oxygen Devices in Use Now: None Appearance: alerts to voice, follows simple commands, pleasant, well appearing Eyes: No Scleral Icterus Ears/Nose/Mouth/Throat: NL Teeth, Lips, Gums, - - right forehead joycelyn, clean. left forehead abrasion. Neck: NL Appearance and Movements; NL JVP Respiratory: Symmetrical Chest Expansion and Respiratory Effort Cardiovascular: NL Sounds; No Murmurs; No JVD, RRR Abdominal: NL Sounds; No Tenderness; No Distention Lymphatic: No Cervical Adenopathy Extremities: No Edema Neurological: NL Muscle Strength and Tone, - - oriented x 2 Result Diagrams: 03/27/17 05:41 03/23/17 14:32 Additional Lab and Data: Laboratory Results - last 24 hr 03/24/17 05:00 WBC 10.4 RBC 5.05 Hgb 13.9 L Hct 41 L MCV 81 MCH 28 MCHC 34 RDW 14 Plt Count 136 L MPV 10 Neut % (Auto) 81.8 Lymph % (Auto) 9.4 L [place] % (Auto) 7.7 Eos % (Auto) 0.5 Baso % (Auto) 0.6 Absolute Neuts (auto) 8.5 H Absolute Lymphs (auto) 1.0 Absolute Monos (auto) 0.8 Absolute Eos (auto) 0.1 Absolute Basos (auto) 0.1 Absolute Nucleated RBC 0 Nucleated RBC % 0 Microbiology and Other Data: Microbiology 03/24/17 04:21 Nasal Screen MRSA (PCR)(TANIA) - Final Nasal Mrsa Not Detected Assess/Plan/Problems-Billing Assessment: 82 yo PMH dementia, htn, agitation p/w fall and 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 s/p zenobia hole 03/24. - Patient Problems (1) SDH (subdural hematoma) Current Visit: Yes Status: Acute Code(s): I62.00 - NONTRAUMATIC SUBDURAL HEMORRHAGE, UNSPECIFIED SNOMED Code(s): 51539333 Comment: s/p zenobia hole with NS drain removed. back to baseline neurologically, but suspect some deconditioning from hospitalization. awaiting PT consult; may need STR. q4 neuro checks (2) Agitation Current Visit: Yes Status: Acute Code(s): R45.1 - RESTLESSNESS AND AGITATION SNOMED Code(s): 894113110 Comment: likely was ICU delirium. much improved with his family here. continue home ativan dose. (3) HTN (hypertension) Current Visit: Yes Status: Acute Code(s): I10 - ESSENTIAL (PRIMARY) HYPERTENSION SNOMED Code(s): 75647958 Comment: continue atenolol. would avoid strict bp control in him. I suspect some of the elevated readings are due to agitation Status and Disposition: awaiting PT consult for dispo
[2017-03-27] MEDS ORDERED: Senna TAB PO PRN (18:15)
[2017-03-27] MEDS ORDERED: Docusate CAP* 100 MG PO PRN (18:15)
[2017-03-27] MEDS ORDERED: Polyethylene Glycol 3350* 17 GM PACKET PO PRN (18:15)
[2017-03-27] MEDS: QUEtiapine TAB* 25 MG PO SCH (19:36)
--- NOTE | 2017-03-27 23:52 | PN ---
Progress Note - Progress Note Date of Service: 03/27/17 Note: Paged for change in mental status. Did get his routine bedtime ativan. Minimally arousable. Unable to follow commands. Will check glucose and head CT and if other two are unremarkable
[2017-03-28 05:41] LABS: ABS Basophils 0.1 10^3/ul (0-0.2); ABS Eosinophils 0.3 10^3/ul (0-0.6); ABS Lymphocytes 2.2 10^3/ul (1.0-4.8); ABS Monocytes 0.8 10^3/ul (0-0.8); ABS Neutrophils 4.7 10^3/ul (1.5-7.7); ABS Nucleated RBC 0 10^3/ul; Eosinophil % 4.1 % (0-6); Hematocrit 38 % (42-52); Hemoglobin 12.7 g/dl (14.0-18.0); Lymphocyte % 26.8 % (25-47); Mean Corpuscular HGB Conc 34 g/dl (31-36); Mean Corpuscular Hemoglobin 28 pg (27-31); Mean Corpuscular Volume 82 fL (80-94); Mean Platelet Volume 9 um3 (7.4-10.4); Nucleated Red Blood Cells % 0; Platelet Count 124 10^3/ul (150-450); Red Blood Count 4.61 10^6/ul (4.0-5.4); Red Cell Distribution Width 14 % (10.5-15)
--- NOTE | 2017-03-28 08:05 | RAD ---
INDICATION: Altered mental status, recent subdural hemorrhage on the right side. COMPARISON: Comparison is made with a prior CT of the brain from March 25, 2017. TECHNIQUE: Contiguous axial sections of the brain were obtained from the skull base to the vertex without contrast. FINDINGS: The ventricles, cisterns and sulci are enlarged consistent with diffuse atrophy. There are multiple focal areas of decreased density in the subcortical and periventricular white matter suggestive of moderate chronic small vessel ischemic changes. There is a zenobia hole in the right frontal bone. There has been removal of a subdural drainage catheter. There is a small amount of residual hemorrhage present in the subdural space present posteriorly on the right side which is unchanged. There is no new hemorrhage. There has been interval resolution of pneumocephalus. No mass effect or midline shift is present. The visualized portion of the paranasal sinuses and mastoid air cells appear clear. IMPRESSION: STATUS POST REMOVAL OF SUBDURAL DRAINAGE CATHETER. SMALL AMOUNT OF RESIDUAL SUBDURAL HEMORRHAGE ON THE RIGHT SIDE. NO NEW HEMORRHAGE.
[2017-03-28] MEDS: Atenolol TAB* 25 MG PO SCH (09:05)
[2017-03-28] MEDS: LORazepam TAB(*) 1 MG PO SCH ×2 (09:05→21:28)
[2017-03-28] MEDS: NIFEdipine CAP* 10 MG PO SCH ×3 (09:05→21:28)
[2017-03-28] MEDS: levETIRAcetam TAB* 500 MG PO SCH ×2 (09:06→21:28)
--- NOTE | 2017-03-28 17:55 | PN ---
Subjective Date of Service: 03/28/17 Interval History: resting in chair, his is at the bedside. he feels good. Family History: Unchanged from Admission Social History: Unchanged from Admission Past Medical History: Unchanged from Admission Objective Active Medications: Acetaminophen (Tylenol Tab*) 650 mg PO Q6H PRN PRN Reason: FEVER/PAIN Atenolol (Tenormin Tab*) 25 mg PO DAILY [facility] Last Admin: 03/28/17 09:05 Dose: 25 mg Docusate Sodium (Colace Cap*) 100 mg PO BID PRN PRN Reason: CONSTIPATION Last Admin: 03/27/17 20:00 Dose: 100 mg Hydralazine HCl (Apresoline Iv*) 10 mg IV SLOW PU Q2H PRN PRN Reason: SYSTOLIC BP GREATER THAN 180 Last Admin: 03/25/17 03:05 Dose: 10 mg Lactated Ringer's (Lactated Ringers 1000 Ml Bag*) 1,000 mls @ 100 mls/hr IV PER RATE [facility] Last Admin: 03/26/17 16:02 Dose: 100 mls/hr Levetiracetam (Keppra Tab*) 1,000 mg PO BID [facility] Last Admin: 03/28/17 09:06 Dose: 1,000 mg Lorazepam (Ativan Inj*) 0.5 mg IV PUSH Q4H PRN PRN Reason: ANXIETY Last Admin: 03/26/17 02:29 Dose: 0.5 mg Lorazepam (Ativan Tab(*)) 1 mg PO BID [facility] Last Admin: 03/28/17 09:05 Dose: 1 mg Nifedipine (Procardia Cap*) 10 mg PO TID [facility] Last Admin: 03/28/17 13:44 Dose: 10 mg Polyethylene Glycol/Electrolytes (Miralax*) 17 gm PO DAILY PRN PRN Reason: CONSTIPATION Quetiapine Fumarate (Seroquel Tab*) 25 mg PO DAILY@1999 [facility] Last Admin: 03/27/17 19:36 Dose: 25 mg Senna (Senokot Tab*) 1 tab PO DAILY PRN PRN Reason: CONSTIPATION Last Admin: 03/27/17 20:00 Dose: 1 tab Vital Signs - 8 hr 03/28/17 03/28/17 03/28/17 11:08 12:19 15:11 Temperature 97.8 F 98.3 F Pulse Rate 75 83 Respiratory 20 16 16 Rate Blood Pressure 146/78 148/77 (mmHg) O2 Sat by Pulse 97 95 Oximetry Oxygen Devices in Use Now: None Appearance: sitting up in chair, well appearing Eyes: No Scleral Icterus Ears/Nose/Mouth/Throat: NL Teeth, Lips, Gums, - - right forehead joycelyn x 5, clean incision. left forehead abrasion Respiratory: Symmetrical Chest Expansion and Respiratory Effort, Clear to Auscultation Cardiovascular: NL Sounds; No Murmurs; No JVD, RRR Abdominal: NL Sounds; No Tenderness; No Distention Lymphatic: No Cervical Adenopathy Extremities: No Edema Neurological: NL Sensation, NL Muscle Strength and Tone Result Diagrams: 03/28/17 05:20 03/23/17 14:32 Additional Lab and Data: Laboratory Results - last 24 hr 03/24/17 05:00 WBC 10.4 RBC 5.05 Hgb 13.9 L Hct 41 L MCV 81 MCH 28 MCHC 34 RDW 14 Plt Count 136 L MPV 10 Neut % (Auto) 81.8 Lymph % (Auto) 9.4 L [place] % (Auto) 7.7 Eos % (Auto) 0.5 Baso % (Auto) 0.6 Absolute Neuts (auto) 8.5 H Absolute Lymphs (auto) 1.0 Absolute Monos (auto) 0.8 Absolute Eos (auto) 0.1 Absolute Basos (auto) 0.1 Absolute Nucleated RBC 0 Nucleated RBC % 0 Microbiology and Other Data: Microbiology 03/24/17 04:21 Nasal Screen MRSA (PCR)(TANIA) - Final Nasal Mrsa Not Detected Assess/Plan/Problems-Billing Assessment: 82 yo PMH dementia, htn, agitation p/w fall and 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 s/p zenobia hole 03/24. - Patient Problems (1) SDH (subdural hematoma) Current Visit: Yes Status: Acute Code(s): I62.00 - NONTRAUMATIC SUBDURAL HEMORRHAGE, UNSPECIFIED SNOMED Code(s): 28042868 Comment: s/p zenobia hole with NS drain removed. back to baseline neurologically, but suspect some deconditioning from hospitalization. PT consult recommending STR; awaiting a bed availability q4 neuro checks (2) Agitation Current Visit: Yes Status: Acute Code(s): R45.1 - RESTLESSNESS AND AGITATION SNOMED Code(s): 633089070 Comment: likely was ICU delirium. much improved with his family here. continue home ativan dose. (3) HTN (hypertension) Current Visit: Yes Status: Acute Code(s): I10 - ESSENTIAL (PRIMARY) HYPERTENSION SNOMED Code(s): 33524327 Comment: continue atenolol. would avoid strict bp control in him. I suspect some of the elevated readings are due to agitation Status and Disposition: awaiting STR
--- NOTE | 2017-03-28 18:49 | PN ---
Progress Note - Progress Note Date of Service: 03/28/17 SOAP: Subjective: []No events ON. Tolerates PO. Drain out. Objective: []VSS, Afebrile, Wounds s,c,d AAOx1-2, RADHA, CN II-XII grossly intact. Motor 4-5/5 all extremities. No pronator drift. Sensory grossly inact to light touch. Assessment: [] 82 yo m POD#4 Rt frontal zenobia hole for SDH evacuation Plan: []OOB in a chair as tolerated, PT/OT DC planning. Ok to DC from NS stand point. Follow up in office in 7-[address] head. Discussed plan with patient's son and at bedside. Appreciate IM management. Shayy Silva MD
[2017-03-28] MEDS: QUEtiapine TAB* 25 MG PO SCH (21:28)
[2017-03-29] MEDS: Atenolol TAB* 25 MG PO SCH (09:02)
[2017-03-29] MEDS: NIFEdipine CAP* 10 MG PO SCH ×3 (09:02→20:06)
[2017-03-29] MEDS: LORazepam TAB(*) 0.5 MG PO SCH ×2 (09:02→20:07)
[2017-03-29] MEDS: levETIRAcetam TAB* 500 MG PO SCH ×2 (09:02→20:06)
[2017-03-29] MEDS: Docusate CAP* 100 MG PO SCH (16:57)
--- NOTE | 2017-03-29 18:54 | PN ---
Subjective Date of Service: 03/29/17 Interval History: Large Bowel movement. Did well with EZ Stand. feed himself. Family still deciding on placement. Family History: Unchanged from Admission Social History: Unchanged from Admission Past Medical History: Unchanged from Admission Objective Active Medications: Acetaminophen (Tylenol Tab*) 650 mg PO Q6H PRN PRN Reason: FEVER/PAIN Atenolol (Tenormin Tab*) 25 mg PO DAILY [facility] Last Admin: 03/29/17 09:02 Dose: 25 mg Docusate Sodium (Colace Cap*) 100 mg PO BID PRN PRN Reason: CONSTIPATION Last Admin: 03/27/17 20:00 Dose: 100 mg Docusate Sodium (Colace Cap*) 100 mg PO DAILY [facility] Last Admin: 03/29/17 16:57 Dose: 100 mg Hydralazine HCl (Apresoline Iv*) 10 mg IV SLOW PU Q2H PRN PRN Reason: SYSTOLIC BP GREATER THAN 180 Last Admin: 03/25/17 03:05 Dose: 10 mg Lactated Ringer's (Lactated Ringers 1000 Ml Bag*) 1,000 mls @ 100 mls/hr IV PER RATE [facility] Last Admin: 03/26/17 16:02 Dose: 100 mls/hr Levetiracetam (Keppra Tab*) 1,000 mg PO BID [facility] Last Admin: 03/29/17 09:02 Dose: 1,000 mg Lorazepam (Ativan Inj*) 0.5 mg IV PUSH Q4H PRN PRN Reason: ANXIETY Last Admin: 03/26/17 02:29 Dose: 0.5 mg Lorazepam (Ativan Tab(*)) 0.5 mg PO BID [facility] Last Admin: 03/29/17 09:02 Dose: 0.5 mg Nifedipine (Procardia Cap*) 10 mg PO TID [facility] Last Admin: 03/29/17 14:14 Dose: 10 mg Polyethylene Glycol/Electrolytes (Miralax*) 17 gm PO DAILY PRN PRN Reason: CONSTIPATION Quetiapine Fumarate (Seroquel Tab*) 25 mg PO DAILY@1999 [facility] Last Admin: 03/28/17 21:28 Dose: 25 mg Senna (Senokot Tab*) 1 tab PO DAILY PRN PRN Reason: CONSTIPATION Last Admin: 03/27/17 20:00 Dose: 1 tab Vital Signs - 8 hr 03/29/17 03/29/17 03/29/17 11:34 11:44 15:19 Temperature 98.1 F 98.0 F Pulse Rate 66 77 Respiratory 16 18 28 Rate Blood Pressure 140/71 130/62 (mmHg) O2 Sat by Pulse 96 93 Oximetry Oxygen Devices in Use Now: None Appearance: NAD. Eyes: No Scleral Icterus, PERRLA Ears/Nose/Mouth/Throat: NL Teeth, Lips, Gums, Mucous Membranes Moist Neck: NL Appearance and Movements; NL JVP Respiratory: Symmetrical Chest Expansion and Respiratory Effort, Clear to Auscultation Cardiovascular: NL Sounds; No Murmurs; No JVD, RRR Abdominal: NL Sounds; No Tenderness; No Distention, No Hepatosplenomegaly Extremities: No Edema Skin: No Rash or Ulcers Neurological: NL Sensation, NL Muscle Strength and Tone, - - oriented to person. Following commands(translated by Son). 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 s/p zenobia hole 03/24. Waiting on placement. - Patient Problems (1) SDH (subdural hematoma) Current Visit: Yes Status: Acute Code(s): I62.00 - NONTRAUMATIC SUBDURAL HEMORRHAGE, UNSPECIFIED SNOMED Code(s): 60149380 Comment: s/p zenobia hole with NS drain removed. back to baseline neurologically, but suspect some deconditioning from hospitalization. PT consult recommending STR; awaiting a bed availability and family decision about facility. q4 neuro checks (2) HTN (hypertension) Current Visit: Yes Status: Acute Code(s): I10 - ESSENTIAL (PRIMARY) HYPERTENSION SNOMED Code(s): 23816727 Comment: continue atenolol and nifedipine TID. controlled. (3) Agitation Current Visit: Yes Status: Acute Code(s): R45.1 - RESTLESSNESS AND AGITATION SNOMED Code(s): 094400807 Comment: likely was ICU delirium. much improved with his family here. continue home ativan dose. seroquel 25mg. (4) Constipation Current Visit: Yes Status: Acute Code(s): K59.00 - CONSTIPATION, UNSPECIFIED SNOMED Code(s): 71606484 Comment: colace daily. miralax, senna. Status and Disposition: awaiting STR
[2017-03-29] MEDS: QUEtiapine TAB* 25 MG PO SCH (20:07)
[2017-03-30] MEDS: levETIRAcetam TAB* 500 MG PO SCH ×2 (09:02→19:27)
[2017-03-30] MEDS: Atenolol TAB* 25 MG PO SCH (09:02)
[2017-03-30] MEDS: Docusate CAP* 100 MG PO SCH (09:03)
[2017-03-30] MEDS: NIFEdipine CAP* 10 MG PO SCH ×3 (09:03→19:27)
[2017-03-30] MEDS: LORazepam TAB(*) 0.5 MG PO SCH ×2 (09:03→19:26)
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
[2017-03-30] MEDS: QUEtiapine TAB* 25 MG PO SCH (19:22)
[2017-03-30] MEDS ORDERED: guaiFENesin LIQ* 100 MG/5 ML UDC PO PRN (21:56)
[2017-03-30] MEDS ORDERED: guaiFENesin LIQ* 100 MG/5 ML UDC ONE (21:59)
--- NOTE | 2017-03-30 23:14 | PN ---
Progress Note - Progress Note Date of Service: 03/30/17 SOAP: Subjective: []No events ON. Tolerates PO. Was able to feed himself. Abulated with assistance. Objective: []VSS, Afebrile, Wounds s,c,d AAOx1-2, RADHA, CN II-XII grossly intact. Motor 4-5/5 all extremities. No pronator drift. Sensory grossly inact to light touch. Assessment: []82 yo m POD#6 Rt frontal zenobia hole for SDH evacuation Plan: []PT/OT DC planning. Ok to DC from NS stand point. Follow up in office in 7-[address] head. Discussed plan with patient's daughter in law at bedside. Appreciate IM management. Shayy Silva MD
[2017-03-31 07:30] VITALS: BP 183/87
[2017-03-31] MEDS: levETIRAcetam TAB* 500 MG PO SCH (08:31)
[2017-03-31] MEDS: LORazepam TAB(*) 0.5 MG PO SCH (08:31)
[2017-03-31] MEDS: NIFEdipine CAP* 10 MG PO SCH (08:31)
[2017-03-31] MEDS: Atenolol TAB* 25 MG PO SCH (08:31)
[2017-03-31] MEDS: Docusate CAP* 100 MG PO SCH (08:31)
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
--- NOTE | 2017-04-02 20:04 | ED ---
Jarod Reyes Julia, scribed for Sriram Robert MD on 03/23/17 at 1550 . Syncope/Near Syncope - HPI Summary HPI Summary: This patient is a 82 year old [facility] by his due to syncopal episode. EMS reports patient was on the floor for 3 hours before called ; his had helped him to the bathroom during this syncopal event. HPI is limited to language barrier (Montserratian). Pts was unwilling to communicate with online proration clerk because she does not know her According to pts son via telephone, he has no previous strokes. Son says he does not typically need help walking to bathroom; he states weakness began at 2:00am. Son states pts speech is slower than usual. Pt will only speak to son via telephone. Patient's reveals bilateral knee laceration. Pt has hx of prostate CA, and is receiving hormone treatment. - History Of Current Complaint Chief Complaint: EDAltMentalStatus Hx Obtained From: Family/Freight Weigher - Son as proration clerk, EMS Hx From Patient Unobtainable Due To: Altered Mental Status - and language barrier Onset/Duration: Lasting Hours - since 2:00 Context: Witnessed - by Activity At Onset: Exertion - walking to bathroom - Allergies/Home Medications Allergies/Adverse Reactions: Allergies Allergy/AdvReac Type Severity Reaction Status Date / Time No Known Allergies Allergy Verified 12/24/15 11:04 Home Medications: Home Medications Atenolol TAB* [Tenormin TAB* 25 MG] 25 mg PO DAILY 03/23/17 [History Confirmed 03/23/17] LORazepam [Ativan 2 MG TAB] 1 mg PO BID 03/23/17 [History Confirmed 03/23/17] PMH/Surg Hx/FS Hx/Imm Hx Endocrine/Hematology History: Denies: Hx Diabetes, Hx Systemic Lupus Erythematosus Cardiovascular History: Denies: Hx Congestive Heart Failure, Hx Hypertension History: Denies: Hx Dialysis, Hx Renal Disease Musculoskeletal History: Reports: Hx Arthritis Denies: Hx Rheumatoid Arthritis Sensory History: Reports: Hx Contacts or Glasses - reading Denies: Hx Hearing Aid Opthamlomology History: Reports: Hx Contacts or Glasses - reading Psychiatric History: Reports: Hx Anxiety - Cancer History Cancer Type, Location and Year: PROSTATE Hx Chemotherapy: No - Surgical History Surgery Procedure, Year, and Place: Prostatectomy 2000 Hx Anesthesia Reactions: No Infectious Disease History: No Infectious Disease History: Denies: Traveled Outside the [place] in Last 30 Days - Family History Family History: Unable to attain due to AMS and language barrier. - Social History Alcohol Use: None Substance Use Type: Reports: None Smoking Status (MU): Former Smoker Review of Systems Respiratory: Negative Gastrointestinal: Negative Genitourinary: Negative Musculoskeletal: Negative Skin: Negative Positive: Other - bilateral knee and head laceration Positive: Weakness Psychological: Other Positive: Other All Other Systems Reviewed And Are Negative: Yes - Comments Additional Review of Systems Comments: ROS is limited due to AMS and language barrier. Physical Exam - Summary Physical Exam Summary: Appearance: Well-appearing, Well-nourished Skin: Warm, Dry, No rash, L forehead laceration, bilateral knee laceration Eyes: Normal, PERRL, EOMI, sclera anicteric ENT: Normal Neck: Supple, nontender Respiratory: Clear to auscultation Cardiovascular: S1, S2, no murmur, no rub, no gallop Abdomen: Soft, nontender, no organomegaly Bowel sounds: Present Musculoskeletal: Normal, Strength/ROM Intact, no edema, pulses symmetrical Neurological: Normal, awake, cranial nerves II-XII WNL, gait not tested, sensation intact to pin and light touch, L sided weakness with pronator drift, L sided facial asymmetry, slowed and slurred speech Triage Information Reviewed: Yes Vital Signs On Initial Exam: Initial Vitals Temp Pulse Resp BP Pulse Ox 98 F 73 28 155/76 95 03/23/17 14:18 03/23/17 14:18 03/23/17 14:18 03/23/17 14:18 03/23/17 14:18 Vital Signs Reviewed: Yes Diagnostics - Vital Signs Vital Signs Temp Pulse Resp BP Pulse Ox 03/23/17 14:18 98 F 73 28 155/76 95 - Laboratory Lab Results: Lab Results 03/23/17 03/23/17 03/23/17 Range/Units 14:32 14:32 14:32 WBC 11.0 H (3.5-10.8) 10^3/ul RBC 4.79 (4.0-5.4) 10^6/ul Hgb 13.2 L (14.0-18.0) g/dl Hct 39 L (42-52) % MCV 81 (80-94) fL MCH 28 (27-31) pg MCHC 34 (31-36) g/dl RDW 14 (10.5-15) % Plt Count 153 (150-450) 10^3/ul MPV 10 (7.4-10.4) um3 Neut % (Auto) 87.0 H (38-83) % Lymph % (Auto) 5.3 L (25-47) % [place] % (Auto) 7.3 (1-9) % Eos % (Auto) 0.2 (0-6) % Baso % (Auto) 0.2 (0-2) % Absolute Neuts (auto) 9.6 H (1.5-7.7) 10^3/ul Absolute Lymphs (auto) 0.6 L (1.0-4.8) 10^3/ul Absolute Monos (auto) 0.8 (0-0.8) 10^3/ul Absolute Eos (auto) 0 (0-0.6) 10^3/ul Absolute Basos (auto) 0 (0-0.2) 10^3/ul Absolute Nucleated RBC 0 10^3/ul Nucleated RBC % 0 INR (Anticoag Therapy) 1.00 (0.77-1.02) APTT 23.5 L (26.0-36.3) seconds Sodium 136 (133-145) mmol/L Potassium 3.8 (3.5-5.0) mmol/L Chloride 102 (101-111) mmol/L Carbon Dioxide 25 (22-32) mmol/L Anion Gap 9 (2-11) mmol/L BUN 19 (6-24) mg/dL Creatinine 0.98 (0.67-1.17) mg/dL Est GFR ( Amer) 93.7 (>60) Est GFR (Non-Af Amer) 72.9 (>60) BUN/Creatinine Ratio 19.4 (8-20) Glucose 134 H (70-100) mg/dL POC Glucose (mg/dL) (70-100) mg/dL Lactic Acid (0.5-2.0) mmol/L Calcium 10.1 (8.6-10.3) mg/dL Total Bilirubin 0.80 (0.2-1.0) mg/dL AST 35 (13-39) U/L ALT 16 (7-52) U/L Alkaline Phosphatase 52 (34-104) U/L Troponin I 0.01 (<0.04) ng/mL Total Protein 6.7 (6.4-8.9) g/dL Albumin 4.3 (3.2-5.2) g/dL Globulin 2.4 (2-4) g/dL Albumin/Globulin Ratio 1.8 (1-3) 03/23/17 03/23/17 Range/Units 14:32 14:38 WBC (3.5-10.8) 10^3/ul RBC (4.0-5.4) 10^6/ul Hgb (14.0-18.0) g/dl Hct (42-52) % MCV (80-94) fL MCH (27-31) pg MCHC (31-36) g/dl RDW (10.5-15) % Plt Count (150-450) 10^3/ul MPV (7.4-10.4) um3 Neut % (Auto) (38-83) % Lymph % (Auto) (25-47) % Jun[place] % (Auto) (1-9) % Eos % (Auto) (0-6) % Baso % (Auto) (0-2) % Absolute Neuts (auto) (1.5-7.7) 10^3/ul Absolute Lymphs (auto) (1.0-4.8) 10^3/ul Absolute Monos (auto) (0-0.8) 10^3/ul Absolute Eos (auto) (0-0.6) 10^3/ul Absolute Basos (auto) (0-0.2) 10^3/ul Absolute Nucleated RBC 10^3/ul Nucleated RBC % INR (Anticoag Therapy) (0.77-1.02) APTT (26.0-36.3) seconds Sodium (133-145) mmol/L Potassium (3.5-5.0) mmol/L Chloride (101-111) mmol/L Carbon Dioxide (22-32) mmol/L Anion Gap (2-11) mmol/L BUN (6-24) mg/dL Creatinine (0.67-1.17) mg/dL Est GFR ( Amer) (>60) Est GFR (Non-Af Amer) (>60) BUN/Creatinine Ratio (8-20) Glucose (70-100) mg/dL POC Glucose (mg/dL) 143 H (70-100) mg/dL Lactic Acid 1.6 (0.5-2.0) mmol/L Calcium (8.6-10.3) mg/dL Total Bilirubin (0.2-1.0) mg/dL AST (13-39) U/L ALT (7-52) U/L Alkaline Phosphatase (34-104) U/L Troponin I (<0.04) ng/mL Total Protein (6.4-8.9) g/dL Albumin (3.2-5.2) g/dL Globulin (2-4) g/dL Albumin/Globulin Ratio (1-3) Result Diagrams: 03/28/17 05:20 03/23/17 14:32 Lab Statement: Any lab studies that have been ordered have been reviewed, and results considered in the medical decision making process. - Radiology Knee Bilateral Radiology Interpretation Completed By: Radiologist - 1. OSTEOPENIA. 2. NO ACUTE OSSEOUS INJURY. THE DEGREE OF OSTEOPENIA MAY MAKE A NONDISPLACED FRACTURE RADIOGRAPHICALLY OCCULT. IF SYMPTOMS PERSIST, RECOMMEND REPEAT IMAGING. ED Physician has reviewed this report. - CT Brain CT Interpretation Completed By: ED Physician - acute on chronic R subdural hematoma C-Spine CT Interpretation Completed By: Radiologist - 1. OSTEOPENIA. 2. DEGENERATIVE DISEASE AND OSTEOARTHRITIS. 3. NO ACUTE OSSEOUS INJURY TO THE CERVICAL SPINE ED Physican has reviewed this report. - EKG 1456 Cardiac Rate: NL - at 70 BPM EKG Rhythm: Sinus Rhythm EKG Interpretation: Early R wave progression; potential old posterior wall TX Course/Dx Course Of Treatment: Pt presents with AMS, L sided weakness, L forehead laceration and bilateral knee lacerations via EMS. Pt fell around 2:00am today. Son, acting as proration clerk, states that he typically is not weak, and current speech is slow and slurred compared to baseline. Brain CT reveals an acute on chronic R sided subdural hematoma. Dr. Jorgensen was paged at 16:00, 16:10, and his office was called at 16:20. At 16:[address] Jorgensen of pt status. He states a C-spine CT should be ordered and he will see pt in ED. He suggests pt go to OR tomorrow. Dr. Yeager agrees to admit. At 1800 Dr. Buckner states he will come clear pateint. C-spine and Knee imaging reveals no fractures or acute concern. Pt is given Levetiracetam. - Diagnoses Provider Diagnoses: Subdural hematoma, acute - Physician Notifications Discussed Care of Patient With: Luz Yeager - hospitalist Time Discussed With Above Provider: 17:50 Instructed by Provider To: Admit As Inpatient Discharge - Discharge Plan Condition: Improved Disposition: ADMITTED TO [facility] documentation as recorded by the Jarod moses Julia accurately reflects the service I personally performed and the decisions made by me, Sriram Robert MD.
== END 2017-03-31 11:10 | DRG 26 ==
LOC: ED 14:11 → MEDTELE 18:19 → ICU 18:25 → SSU 03-26 15:58
PROVIDERS: ADMIT Internal Medicine; ATTEND Internal Medicine
PROC: 00C40ZZ Extirpation of Matter from Intracranial Subdural Space, Open Approach (ICD-10-PCS; principal; 2017-03-24 11:00)
DX: I62.01 Nontraumatic acute subdural hemorrhage (principal); G81.94 Hemiplegia, unspecified affecting left nondominant side; G93.89 Other specified disorders of brain; C61 Malignant neoplasm of prostate; F03.90 Unspecified dementia, unspecified severity, without behavioral disturbance, psychotic disturbance, mood disturbance, and anxiety; I10 Essential (primary) hypertension; I62.03 Nontraumatic chronic subdural hemorrhage; F41.9 Anxiety disorder, unspecified; W19.XXXA Unspecified fall, initial encounter; R45.1 Restlessness and agitation; M19.90 Unspecified osteoarthritis, unspecified site; K59.00 Constipation, unspecified; K21.9 Gastro-esophageal reflux disease without esophagitis; Y92.009 Unspecified place in unspecified non-institutional (private) residence as the place of occurrence of the external cause; Z91.81 History of falling; Z82.3 Family history of stroke; Z87.891 Personal history of nicotine dependence
CPT/HCPCS: 36415; 70450; 72125; 80053; 80061; 81003; 81015; 83036; 83605; 84484; 85025; 85610; 85730; 87641; 93005; 99284; A9270-GY; J0360; J0690; J2001; J2060; J2150; J2704; J3010

== ENCOUNTER 2018-02-27 09:55 | Emergency (ER) | payer BC, MEDICARE ==
--- NOTE | 2018-02-27 10:17 | ED ---
Altered Mental Status - HPI Summary HPI Summary: An 83 y/o male brought in by [facility] ambulance and police presents to [facility] with a chief complaint of dementia the morning of 02/27/18. Per , the patient is acting like his normal self. The patient denies a headache. The patient wandered off and was found by a bystander on the street, who called the ambulance and notified police. The patient denies any pain, rating his pain as 0 /10. A interpreter translator was used in room due to a language barrier. 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, Other: - Candlemaker Onset/Duration: Unknown, Still Present Timing: Constant, Lasting Weeks Severity Initially: Mild Severity Currently: Mild Character: Confusion Aggravating Factor(s): Nothing Alleviating Factor(s): Nothing Associated Signs And Symptoms: Negative: Headache - Allergies/Home Medications Allergies/Adverse Reactions: Allergies Allergy/AdvReac Type Severity Reaction Status Date / Time No Known Allergies Allergy Verified 12/24/15 11:04 PMH/Surg Hx/FS Hx/Imm Hx Endocrine/Hematology History: Denies: Hx Diabetes, Hx Systemic Lupus Erythematosus Cardiovascular History: Denies: Hx Congestive Heart Failure, Hx Hypertension History: Reports: Other Problems/Disorders - Prostate CA Denies: Hx Dialysis, Hx Renal Disease Musculoskeletal History: Reports: Hx Arthritis Denies: Hx Rheumatoid Arthritis Sensory History: Reports: Hx Contacts or Glasses - reading Denies: Hx Hearing Aid Opthamlomology History: Reports: Hx Contacts or Glasses - reading Neurological History: Reports: Hx Dementia Psychiatric History: Reports: Hx Anxiety - Cancer History Cancer Type, Location and Year: PROSTATE Hx Chemotherapy: No - Surgical History Surgery Procedure, Year, and Place: Prostatectomy 1999 Hx Anesthesia Reactions: No Infectious Disease History: No Infectious Disease History: Denies: Traveled Outside the [place] in Last 30 Days - Family History Family History: Unable to attain due to AMS and language barrier. - Social History Alcohol Use: None Substance Use Type: Reports: None Smoking Status (MU): Former Smoker Have You Smoked in the Last Year: No Review of Systems Negative: Fever Neurological: Other - positive: dementia but acting like his normal self Negative: Headache All Other Systems Reviewed And Are Negative: Yes Physical Exam - Summary Physical Exam Summary: Appearance: The patient is well-nourished in no acute distress and in no acute pain. Skin: The skin is warm and dry and skin color reflects adequate perfusion. HEENT: The head is normocephalic and atraumatic. The pupils are equal and reactive. The conjunctivae are clear and without drainage. Nares are patent and without drainage. Mouth reveals moist mucous membranes and the throat is without erythema and exudate. The external ears are intact. The ear canals are patent and without drainage. The tympanic membranes are intact. Neck: The neck is supple with full range of motion and non-tender. There are no carotid bruits. There is no neck vein distension. Respiratory: Chest is non-tender. Lungs are clear to auscultation and breath sounds are symmetrical and equal. Cardiovascular: Heart is regular rate and rhythm. There is no murmur or rub auscultated. There is no peripheral edema and pulses are symmetrical and equal. Abdomen: The abdomen is soft and non-tender. There are normal bowel sounds heard in all four quadrants and there is no organomegaly palpated. Musculoskeletal: There is no back tenderness noted. Extremities are non-tender with full range of motion. There is good capillary refill. There is no peripheral edema or calf tenderness elicited. Neurological: Patient is alert and oriented to person, place and time. The patient has symmetrical motor strength in all four extremities. Cranial nerves are grossly intact. Deep tendon reflexes are symmetrical and equal in all four extremities. Psychiatric: The patient has an appropriate affect and does not exhibit any anxiety or depression. Triage Information Reviewed: Yes Vital Signs On Initial Exam: Initial Vitals Temp Pulse Resp BP Pulse Ox 97.6 F 71 20 174/96 96 02/27/18 10:02 02/27/18 10:02 02/27/18 10:02 02/27/18 10:02 02/27/18 10:02 Vital Signs Reviewed: Yes Diagnostics - Vital Signs Vital Signs Temp Pulse Resp BP Pulse Ox 02/27/18 10:02 97.6 F 71 20 174/96 96 - Laboratory Lab Statement: Any lab studies that have been ordered have been reviewed, and results considered in the medical decision making process. Altered Mental Statu Course/Dx - Course Course Of Treatment: Mr. Monroy has significant dementia and wanted her from his house this morning. He was found by some strangers who called an ambulance was subsequently called the police. He arrives in the emergency Department nontoxic in appearance with stable vital signs and no complaint. His is here and makes it known through the interpreter translator that she doesn't believe anything medically is wrong, that he has dementia and that is not unusual that he wanted way. He'll be discharged back to his PCP. - Diagnoses Provider Diagnoses: Dementia Discharge - Sign-Out/Discharge Documenting (check all that apply): Patient Departure - DC - Discharge Plan Condition: Stable Disposition: HOME Referrals: Dawit Ferrari MD [Primary Care Provider] - (as needed.) Additional Instructions: Return to the ED if you experience any new or worsening symptoms. - Billing Disposition and Condition Condition: STABLE Disposition: Home - Attestation Statements Document Initiated by Clementina: Yes Documenting Doreenibe: Kulwant Smalls Provider For Whom Clementina is Documenting (Include Credential): Morris Kaur MD Scribe Attestation: Kulwant Reyes, scribed for Morris Kaur MD on 02/27/18 at 1144. Scribe Documentation Reviewed: Yes Provider Attestation: The documentation as recorded by the Kulwant moses accurately reflects the service I personally performed and the decisions made by me, Morris Kaur MD Status of Scribe Document: Viewed
[2018-02-27 10:57] VITALS: BP 157/92
== END 2018-02-27 10:57 | disposition home or self-care (01) ==
LOC: ED 09:55
DX: F03.90 Unspecified dementia, unspecified severity, without behavioral disturbance, psychotic disturbance, mood disturbance, and anxiety (principal); Z87.891 Personal history of nicotine dependence
CPT/HCPCS: 99282

== ENCOUNTER → 2018-11-29 05:37 | Day surgery (SDC) | payer MEDICARE, BC ==
--- NOTE | 2018-11-17 10:26 | HP ---
CC: Dr. Ferrari * HISTORY AND PHYSICAL: DATE OF PLANNED ADMISSION AND SURGERY: 11/29/18 HISTORY OF PRESENT ILLNESS: Mr. Monroy is an 83-year-old white male who is admitted with a bladder tumor for cystoscopy and excisional biopsy. I have been following Mr. Monroy for the last 19 years. In July 1999, he was diagnosed with Monique 7 adenocarcinoma of the prostate with a PSA at that time was 27. In August 1999, he underwent a radical prostatectomy. The pathology showed bilateral Eastern 7 disease and there was seminal vesicle involvement putting him at stage 3B. He did ell postoperatively. No radiation treatment given. The PSA has slowly increased. In October 2016, it was up to 23. Metastatic workup was negative. He was then started on intermittent hormone ablation therapy and he responded well with his last PSA 1 month ago at 0.5. The patient presented to my office because of a recent episode of total gross painless hematuria. There was no associated flank or abdominal pain and no changes in his voiding. He has been incontinent mostly because of progressive dementia. He was worked up in the office and had a renal ultrasound, which showed a 5 cm Bosniak II cyst in the right kidney and a non-obstructing 7 mm calculus in the lower pole calyx of the left kidney. There were no solid masses or hydronephrosis noted. 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 No other bladder lesions were seen. Because of the above finding, the patient is admitted for cystoscopy and excisional biopsy of the above tumor. PAST MEDICAL HISTORY AND SYSTEM REVIEW: The patient had a radical prostatectomy in 1999 for stage 3 prostate cancer. He has progressive dementia and more recently needs 24-hour care, which is provided by his family. He is incontinent of urine, in diapers. He still lives at home cared for by his and a very attentive son. There is no history of cardiac or pulmonary diseases. He is on atenolol because of hypertension and lorazepam because of irritability. He is on hormone ablation therapy for his prostate cancer with periodic Lupron shots. He gives past history of smoking, stopped many years ago. ALLERGIES: He has no allergies to medications. PHYSICAL EXAMINATION GENERAL: He is a pleasant, but demented white male, who looks his age. VITAL SIGNS: Blood pressure 120/80, pulse of 60, oxygen saturation 98%. LUNGS: Clear. HEART: Regular and rhythmic. No murmurs. ABDOMEN: Soft without any masses. EXTERNAL GENITALIA: Normal. IMPRESSION: Recent episode of gross painless hematuria secondary to a bladder tumor. Status post radical prostatectomy for prostate carcinoma with PSA recurrence, responding well to intermittent hormone ablation therapy. PLAN: Cystoscopy and excisional biopsy of the bladder tumor. Additional treatment will be decided depending upon the pathology. [id number]/[facility] #: [id number] MTDD
[~2018-11-29 05:37] MED LIST: Buffered Lidocaine 1% SYRIN* 1 ML/SYRINGE INTRADERM ONE; Dexamethasone IV* 4 MG/ML 1 ML (4 MG) ONE; EPHEDrine (Pressors)* 50 MG/ML VIAL ONE; Famotidine IV* 10 MG/ML 2 ML (20 mg) IV ONE; Famotidine IV* 10 MG/ML 2 ML (20 mg) ONE; Lactated Ringers 1000 ML Bag* 1,000 ML IV SCH; Lidocaine 2% PF * 5 ML VIAL ONE; Midazolam* 1 MG/ML 2 ML VIAL (2 MG) ONE; Naloxone* 0.4 MG/ML 1 ML VIAL IV PRN; Ondansetron INJ* 2 MG/ML VIAL IV PRN; Ondansetron INJ* 2 MG/ML VIAL ONE; Phenylephrine 40 MCG/ML SYRINGE ONE; Propofol* 10 MG/ML 20 ML BTL ONE; cefTRIAXone(*) 2 GM ADDV.VIAL IVPB ONE; fentaNYL* 50 MCG/ML 2 ML VIAL (100 MCG VIAL) IV PRN; fentaNYL* 50 MCG/ML 2 ML VIAL (100 MCG VIAL) ONE; mitoMYcin PREMIX* 40 MG KIT* 40 MG/40 ML SYRINGE IRRIGATION ONE
[2018-11-29 10:14] VITALS: BP 145/88
--- NOTE | 2018-11-29 11:59 | OP ---
CC: Dr. Ferrari * DATE OF OPERATION: 11/29/18 - [facility] DATE OF : 31 SURGEON: Dash Meadows MD ANESTHESIOLOGIST: Dr. Buck Friend. ANESTHESIA: General. PRE-OP DIAGNOSIS: Bladder tumor. POST-OP DIAGNOSIS: Bladder tumor. OPERATIVE PROCEDURE: Transurethral resection of bladder tumor, right anterior bladder wall, 2.5 cm. INDICATION FOR PROCEDURE: Mr. Monroy is an 83-year-old white male who had undergone a radical prostatectomy for stage 3 adenocarcinoma of the prostate about 20 years ago. He had PSA recurrence and has been on intermittent hormone ablation therapy. He was recently noted to have gross painless hematuria. Office cystoscopy showed a bladder tumor. The patient admitted for transurethral resection of the tumor. PATHOLOGY: At cystoscopy, the penile and bulbar urethrae looked normal. There was absence of the prostate consistent with the history of radical prostatectomy. The bladder neck was open without any contracture. Examination of the bladder showed normal ureteral orifices. There were moderate bladder trabeculations. There was a 2.5 cm pedunculated tumor arising from the right anterior bladder wall. 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 No other suspicious bladder lesions were seen. There were no changes of carcinoma in situ. No calculi or diverticula were noted. DESCRIPTION OF PROCEDURE: After successful general anesthesia, the patient was placed in the lithotomy position and was prepped and draped for a cystoscopy. Cystoscopy was performed, the bladder was carefully inspected, and the above findings were noted. The resectoscope was then introduced inside the bladder. Water was used for irrigation, and inflow and outflow were adjusted to avoid overdistension of the bladder. The tumor was then resected starting first by cold looping it until the base of the tumor, and then resecting the base. The bleeders were fulgurated. The cystoscope was then reintroduced inside the bladder. Using the biopsy forceps, a cold biopsy was obtained from the base of the tumor down to muscle for staging purposes. The resectoscope was reintroduced inside the bladder and additional fulguration was performed. At the completion of the procedure, there was no residual tumor noted. There was very good hemostasis. Final inspection showed again no other tumors. The resectoscope was then removed and a size 20-Yoruba Hinson catheter was passed inside the bladder. The patient tolerated the procedure well and left the operating room in good condition. The plan is to give the patient 1 dose of intravesical mitomycin C in the recovery room. [id number]/[facility] #: [id number] MTDD
== END | disposition home or self-care (01) ==
LOC: OR 05:37
PROVIDERS: ATTEND Urology
DX: C67.3 Malignant neoplasm of anterior wall of bladder (principal); Z85.46 Personal history of malignant neoplasm of prostate; Z87.891 Personal history of nicotine dependence; I10 Essential (primary) hypertension; F03.90 Unspecified dementia, unspecified severity, without behavioral disturbance, psychotic disturbance, mood disturbance, and anxiety; J44.9 Chronic obstructive pulmonary disease, unspecified; M19.90 Unspecified osteoarthritis, unspecified site; K21.9 Gastro-esophageal reflux disease without esophagitis; F41.9 Anxiety disorder, unspecified
CPT/HCPCS: 88305; J0696; J1100; J2250; J2405; J2704; J3010